=== PATIENT | female | born 1960 | race Caucasian/White ===

== ENCOUNTER 2017-03-15 09:41 | Emergency (ER) | payer OTHER ==
--- NOTE | 2017-03-15 09:58 | PDOC ---
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 The patient is a poor historian and provides no other information than missing the toilet, falling backward, and hitting his head on the toilet seat. The patient is also complaining of back pain but cannot localize the pain. Allergies: NKA Social history: Current smoker. In rehab for heroin use. No reported alcohol use. <Marisel Adams - Last Filed: 03/15/17 11:50> - General Chief Complaint: Injury Stated Complaint: INJURY TO HEAD Time Seen by Provider: 03/15/17 09:57 Past History - Past Medical History Anemia: No Asthma: Yes Cancer: No Cardiac Disorders: No CVA: Yes (last year,rt. hemiplegia spent 6 months in [place] for rehab) COPD: No Dementia: Yes (Memory loss for recent events) Diabetes: No GI Disorders: No Disorders: No HTN: Yes Kidney Stones: No Liver Disease: Yes (Cirrhosis) Seizures: Yes (2 MONTHS AGO) Thyroid Disease: No - Reproductive History PID: No - Suicide/Smoking/Psychosocial Hx Smoking History: Current every day smoker Have you smoked in the past 12 months: Yes Number of Cigarettes Smoked Daily: 3 'Breaking Loose' booklet given: 03/11/17 Hx Alcohol Use: Yes Drug/Substance Use Hx: Yes Substance Use Type: Alcohol, Heroin Hx Substance Use Treatment: Yes (Detox) <Erickson Edwards - Last Filed: 03/15/17 11:33> <Marisel Adams - Last Filed: 03/15/17 11:50> - Past Medical History Allergies/Adverse Reactions: Allergies Allergy/AdvReac Type Severity Reaction Status Date / Time No Known Allergies Allergy Verified 03/15/17 10:11 Home Medications: Ambulatory Orders Chlordiazepoxide [Librium -] 10 mg PO Q6HPO 03/15/17 Furosemide [Lasix] 20 mg PO DAILY 03/15/17 Ibuprofen [Motrin -] 400 mg PO PRN 03/15/17 Loperamide HCl [Imodium -] 4 mg PO PRN 03/15/17 Mag Hydrox/Al Hydrox/Simeth [Mylanta *Suspension*] 30 ml PO PRN 03/15/17 Magnesium Citrate [Citroma -] 300 ml PO PRN 03/15/17 Magnesium Hydrox 2400MG/30Ml [Milk of Magnesia -] 30 ml PO PRN 03/15/17 Methadone [Dolophine -] 10 mg PO DAILY 03/15/17 Nicotine Patch [Nicoderm Patch -] 1 patch TD DAILY 03/15/17 Nicotine Polacrilex [Nicorette] 2 mg BC PRN 03/15/17 P-Ephed 60Mg/Triprolidi 2.5MG [Actifed -] 1 combo PO PRN 03/15/17 Vitamins (Sjr) - 1 tab PO DAILY 03/15/17 Spironolactone [Aldactone] 25 mg PO DAILY 03/15/17 Thiamine HCl [Vitamin B1] 100 mg PO DAILY 03/15/17 Review of Systems - Review of Systems Able to Perform ROS?: Yes Comments:: 03/15/17 10:43 GENERAL/CONSTITUTIONAL: (+) Generalized pain. No fever or chills. HEAD, EYES, EARS, NOSE AND THROAT: No change in vision. No ear pain or discharge. No sore throat. CARDIOVASCULAR: No chest pain or shortness of breath. RESPIRATORY: No cough, wheezing, or hemoptysis. GASTROINTESTINAL: No nausea, vomiting, diarrhea or constipation. GENITOURINARY: No dysuria, frequency, or change in urination. MUSCULOSKELETAL: No neck pain. SKIN: No rash NEUROLOGIC: No headache, vertigo, loss of consciousness, or change in strength/ sensation. ENDOCRINE: No increased thirst. No abnormal weight change. HEMATOLOGIC/LYMPHATIC: No anemia, easy bleeding, or history of blood clots. ALLERGIC/IMMUNOLOGIC: No hives or skin allergy. <Marisel Adams - Last Filed: 03/15/17 11:50> *Physical Exam - Vital Signs Last Vital Signs Temp Pulse Resp BP Pulse Ox 98.0 F 73 18 102/47 100 03/15/17 10:01 03/15/17 10:01 03/15/17 10:01 03/15/17 10:01 03/15/17 10:01 - Physical Exam Comments: 03/15/17 10:47 GENERAL:(+) Moderate distress. Awake, alert, and fully oriented HEAD: No signs of trauma EYES: PERRLA, EOMI, sclera anicteric, conjunctiva clear ENT: Auricles normal inspection, hearing grossly normal, nares patent, oropharynx clear without exudates. Moist mucosa NECK: Normal ROM, supple, no lymphadenopathy, JVD, or masses LUNGS: Breath sounds equal, clear to auscultation bilaterally. No wheezes, and no crackles HEART: Regular rate and rhythm, normal S1 and S2, no murmurs, rubs or gallops ABDOMEN: Soft, nontender, normoactive bowel sounds. No guarding, no rebound. No masses EXTREMITIES: Normal range of motion, no edema. No clubbing or cyanosis. No cords, erythema, or tenderness NEUROLOGICAL: Cranial nerves II through XII grossly intact. Normal speech, normal gait SKIN: Warm, Dry, normal turgor, no rashes or lesions noted. <Marisel Adams - Last Filed: 03/15/17 11:50> Medical Decision Making - Medical Decision Making 03/15/17 11:50 Type: Head CT w/o contrast Reported by: Dr. Avina Reviewed by: Dr. Edwards Impression: 1. No acute intracranial hemorrhage or acute skull fracture. No mass effects, midline shift, or hydrocephalus. 2. Hypoattenuation in the periventricular white matter is nonspecific, but most likely related to mild microvascular ischemia. Relatively advanced volume loss for stated age. <Marisel Adams - Last Filed: 03/15/17 11:50> *DC/Admit/Observation/Transfer - Discharge Dispostion Admit: No - Attestations Physician Attestion: 03/15/17 09:58 I, Dr. Erickson Edwards, attest that this document has been prepared under my direction and personally reviewed by me in its entirety. I further attest, that it accurately reflects all work, treatment, procedures and medical decision -making performed by me. <Erickson Edwards - Last Filed: 03/15/17 11:33> - Attestations Scribe Attestion: 03/15/17 10:48 Documentation prepared by Marisel Adams, acting as medical secretary for Erickson Edwards MD. <Marisel Adams - Last Filed: 03/15/17 11:50> Diagnosis at time of Disposition: Heroin use disorder, mild, Status post alcohol detoxification, Alcohol dependence with uncomplicated withdrawal, Opioid dependence with withdrawal Head injury Qualifiers: Encounter type: initial encounter Qualified Code(s): S09.90XA - Unspecified injury of head, initial encounter HTN (hypertension) Qualifiers: Hypertension type: essential hypertension Qualified Code(s): I10 - Essential ( primary) hypertension - Discharge Dispostion Disposition: HOME Condition at time of disposition: Unchanged/Unknown - Patient Instructions Printed Discharge Instructions: DI for Closed Head Injury Additional Instructions: Go Back to [facility] or [facility] now
[2017-03-15 10:11] VITALS: BP 102/47; PULSE 73; TEMP 98; BMI 23.8
== END 2017-03-15 14:08 | disposition home or self-care (01) ==
LOC: JER 09:41
DX: S09.90XA Unspecified injury of head, initial encounter (principal); I10 Essential (primary) hypertension; F11.90 Opioid use, unspecified, uncomplicated; J44.9 Chronic obstructive pulmonary disease, unspecified; K74.60 Unspecified cirrhosis of liver; F17.210 Nicotine dependence, cigarettes, uncomplicated; W18.39XA Other fall on same level, initial encounter; Y93.89 Activity, other specified; Y92.238 Other place in hospital as the place of occurrence of the external cause
CPT/HCPCS: 70450-TC; 99282-25

== ENCOUNTER 2017-03-16 11:10 | Inpatient (IN) | payer OTHER ==
--- NOTE | 2017-03-16 12:23 | HP ---
[facility] Rehab Assess/Revision - Admission History Admitted to Rehab from: [facility] Date of Admission to Rehab: 03/16/17 - Vital signs Vital Signs: as per chart - Findings Detox History & Physical reviewed: Yes Concur with findings: Yes Inpatient Rehab Admission - Initial Determination Are CD services needed?: Yes Free of communicable disease: Yes Not in need of hospitalization: Yes - Rehab Admission Criteria Comorbidities: Yes Lacks judgement: Yes Patient is meeting Inpatient Rehab admission criteria:: Yes
[2017-03-16] MEDS ORDERED: hydrOXYzine PAMOATE 50 MG CAPSULE (FP) PO PRN (12:24)
[2017-03-16] MEDS ORDERED: MAGNESIUM HYDROX 2400MG/30ML ORAL SUSPENSION 30 ML CUP PO PRN (12:24)
[2017-03-16] MEDS ORDERED: LOPERAMIDE HCL 2 MG CAPSULE PO PRN (12:24)
[2017-03-16] MEDS ORDERED: NICOTINE POLACRILEX 2 MG GUM BUC PRN (12:24)
[2017-03-16] MEDS ORDERED: ACETAMINOPHEN 325 MG TABLET (FP) PO PRN (12:24)
[2017-03-16] MEDS ORDERED: MAGNESIUM CITRATE 300 ML BOTTLE PO PRN (12:24)
[2017-03-16] MEDS ORDERED: P-EPHED 60MG/TRIPROLIDI 2.5MG TABLET PO PRN (12:24)
[2017-03-16] MEDS ORDERED: MENTHOL/PHENOL 1 EACH UD MM PRN (12:24)
[2017-03-16] MEDS ORDERED: guaiFENesin/D-METHORPHAN HB 10 ML UNIT-DOSE CUPS PO PRN (12:24)
--- NOTE | 2017-03-16 13:59 | HP ---
Psychiatrist Admission - Data Date of interview: 03/16/17 Admission source: 3N Identifying data: This is the first inpatient rehabilitation admission for this 57 year old single female, mother of one, she is unemployed and homeless. Medical History: HTN, Asthma, Hep C, Seizure 2 months ago, stroke x 2 in 2016, liver cirrhosis, smokes cigarettes 2-3 a day. Psychiatric History: Patient denies history of psychiatric treatment, however reports not sleeping and feeling sad. Physical/Sexual Abuse/Trauma History: Patient denies history of abuse. Vital Signs: Vital Signs - 24 hr 03/16/17 12:23 Temperature 97.8 F Pulse Rate 70 Respiratory 16 Rate Blood Pressure 102/65 Allergies/Adverse Reactions: Allergies Allergy/AdvReac Type Severity Reaction Status Date / Time No Known Allergies Allergy Verified 03/15/17 10:11 Date of last physical exam: 03/15/17 Concur with the findings of this exam: Yes - Substance Abuse/Tx History Hx Alcohol Use: Yes (vodka 1 pint daily, started at age of 17) Hx Substance Use: Yes Substance Use Type: Heroin (1-2 bags daily, started at age of 38) Hx Substance Use Treatment: No (this is the first rehab.) Mental Status Exam - Mental Status Exam Alert and Oriented to: Place, Person Cognitive Function: Impaired Patient Appearance: Unkempt, Disheveled (with body oder) Mood: Sad, Anxious Affect: Appropriate, Mood Congruent Patient Behavior: Appropriate, Cooperative Speech Pattern: Clear, Appropriate Voice Loudness: Normal Thought Process: Goal Oriented Thought Disorder: Not Present Hallucinations: Denies Suicidal Ideation: Denies Homicidal Ideation: Denies Insight/Judgement: Fair Sleep: Poorly, Difficulty falling asleep Appetite: Poor, Weight loss Gait/Station: Other (ambulates with a walker.) Psychiatric Findings - Problem List ([place] 1, 2,3) (1) Opioid dependence Current Visit: Yes Status: Acute (2) Nicotine dependence Current Visit: Yes Status: Acute (3) Alcohol dependence Current Visit: Yes Status: Acute (4) Alcohol induced sleep disorders Current Visit: Yes Status: Acute - Initial Treatment Plan Initial Treatment Plan: will add Trazodone 25 mg po has, continue to monitor progress.
[2017-03-16] MEDS: THIAMINE HCL 100 MG TABLET (FP) PO SCH (21:54)
[2017-03-16] MEDS: traZODone HCL 50 MG TABLET (FP) PO SCH (21:54)
[2017-03-17] MEDS: PRENATAL VITAMINS W/ FOLIC ACID TABLET (FP) PO SCH (09:04)
[2017-03-17] MEDS: NICOTINE 7 MG/24 HOURS TOPICAL PATCH TD SCH ×2 (09:04→11:05)
[2017-03-17] MEDS: FUROSEMIDE 20 MG TABLET (FP) PO SCH (09:05)
[2017-03-17] MEDS: traZODone HCL 50 MG TABLET (FP) PO SCH (21:37)
[2017-03-17] MEDS: THIAMINE HCL 100 MG TABLET (FP) PO SCH (21:37)
[2017-03-18] MEDS: FUROSEMIDE 20 MG TABLET (FP) PO SCH (09:38)
[2017-03-18] MEDS: PRENATAL VITAMINS W/ FOLIC ACID TABLET (FP) PO SCH (09:38)
[2017-03-18] MEDS: NICOTINE 7 MG/24 HOURS TOPICAL PATCH TD SCH (09:39)
[2017-03-18] MEDS: IBUPROFEN 400 MG TABLET (FP) PO PRN (15:50)
[2017-03-18] MEDS: THIAMINE HCL 100 MG TABLET (FP) PO SCH (21:42)
[2017-03-18] MEDS: traZODone HCL 50 MG TABLET (FP) PO SCH (21:43)
[2017-03-19] MEDS: PRENATAL VITAMINS W/ FOLIC ACID TABLET (FP) PO SCH (09:59)
[2017-03-19] MEDS: FUROSEMIDE 20 MG TABLET (FP) PO SCH (09:59)
[2017-03-19] MEDS: NICOTINE 7 MG/24 HOURS TOPICAL PATCH TD SCH (09:59)
[2017-03-19] MEDS: THIAMINE HCL 100 MG TABLET (FP) PO SCH (21:40)
[2017-03-19] MEDS: traZODone HCL 50 MG TABLET (FP) PO SCH (21:40)
[2017-03-20] MEDS: PRENATAL VITAMINS W/ FOLIC ACID TABLET (FP) PO SCH (10:28)
[2017-03-20] MEDS: FUROSEMIDE 20 MG TABLET (FP) PO SCH (10:28)
[2017-03-20] MEDS: NICOTINE 7 MG/24 HOURS TOPICAL PATCH TD SCH (10:28)
[2017-03-20] MEDS ORDERED: ONDANSETRON *ODT* 4 MG TABLET SL PRN (11:30)
[2017-03-20] MEDS: THIAMINE HCL 100 MG TABLET (FP) PO SCH (21:40)
[2017-03-20] MEDS: traZODone HCL 50 MG TABLET (FP) PO SCH (21:40)
[2017-03-21] MEDS: PRENATAL VITAMINS W/ FOLIC ACID TABLET (FP) PO SCH (10:03)
[2017-03-21] MEDS: NICOTINE 7 MG/24 HOURS TOPICAL PATCH TD SCH (10:03)
[2017-03-21] MEDS: THIAMINE HCL 100 MG TABLET (FP) PO SCH (21:18)
[2017-03-21] MEDS: traZODone HCL 50 MG TABLET (FP) PO SCH (21:18)
[2017-03-22] MEDS: NICOTINE 7 MG/24 HOURS TOPICAL PATCH TD SCH (11:14)
[2017-03-22] MEDS: PRENATAL VITAMINS W/ FOLIC ACID TABLET (FP) PO SCH (11:14)
[2017-03-22] MEDS: THIAMINE HCL 100 MG TABLET (FP) PO SCH (21:19)
[2017-03-22] MEDS: traZODone HCL 50 MG TABLET (FP) PO SCH (21:20)
[2017-03-23] MEDS: NICOTINE 7 MG/24 HOURS TOPICAL PATCH TD SCH (10:12)
[2017-03-23] MEDS: PRENATAL VITAMINS W/ FOLIC ACID TABLET (FP) PO SCH (10:12)
[2017-03-23] MEDS: THIAMINE HCL 100 MG TABLET (FP) PO SCH (21:43)
[2017-03-23] MEDS: traZODone HCL 50 MG TABLET (FP) PO SCH (21:43)
[2017-03-24] MEDS: NICOTINE 7 MG/24 HOURS TOPICAL PATCH TD SCH (09:49)
[2017-03-24] MEDS: PRENATAL VITAMINS W/ FOLIC ACID TABLET (FP) PO SCH (09:49)
[2017-03-24] MEDS: traZODone HCL 50 MG TABLET (FP) PO SCH (21:29)
[2017-03-24] MEDS: THIAMINE HCL 100 MG TABLET (FP) PO SCH (21:29)
[2017-03-25] MEDS: IBUPROFEN 400 MG TABLET (FP) PO PRN (08:52)
[2017-03-25] MEDS: PRENATAL VITAMINS W/ FOLIC ACID TABLET (FP) PO SCH (10:07)
[2017-03-25] MEDS: NICOTINE 7 MG/24 HOURS TOPICAL PATCH TD SCH (10:08)
[2017-03-25] MEDS: traZODone HCL 50 MG TABLET (FP) PO SCH (21:39)
[2017-03-25] MEDS: THIAMINE HCL 100 MG TABLET (FP) PO SCH (21:39)
[2017-03-26] MEDS: NICOTINE 7 MG/24 HOURS TOPICAL PATCH TD SCH (09:56)
[2017-03-26] MEDS: PRENATAL VITAMINS W/ FOLIC ACID TABLET (FP) PO SCH (09:57)
[2017-03-26] MEDS: THIAMINE HCL 100 MG TABLET (FP) PO SCH (21:28)
[2017-03-26] MEDS: traZODone HCL 50 MG TABLET (FP) PO SCH (21:28)
[2017-03-27] MEDS: NICOTINE 7 MG/24 HOURS TOPICAL PATCH TD SCH (09:54)
[2017-03-27] MEDS: PRENATAL VITAMINS W/ FOLIC ACID TABLET (FP) PO SCH (09:54)
[2017-03-27] MEDS: THIAMINE HCL 100 MG TABLET (FP) PO SCH (21:42)
[2017-03-27] MEDS: traZODone HCL 50 MG TABLET (FP) PO SCH (21:42)
[2017-03-28] MEDS: PRENATAL VITAMINS W/ FOLIC ACID TABLET (FP) PO SCH (10:10)
[2017-03-28] MEDS: NICOTINE 7 MG/24 HOURS TOPICAL PATCH TD SCH (10:10)
[2017-03-28] MEDS: traZODone HCL 50 MG TABLET (FP) PO SCH (21:42)
[2017-03-28] MEDS: THIAMINE HCL 100 MG TABLET (FP) PO SCH (21:42)
[2017-03-29] MEDS ORDERED: COLLOIDAL OATMEAL 1 BAR EACH TP PRN (10:13)
[2017-03-29] MEDS: PRENATAL VITAMINS W/ FOLIC ACID TABLET (FP) PO SCH (10:36)
[2017-03-29] MEDS: NICOTINE 7 MG/24 HOURS TOPICAL PATCH TD SCH (10:36)
[2017-03-29] MEDS: traZODone HCL 50 MG TABLET (FP) PO SCH (21:44)
[2017-03-29] MEDS: THIAMINE HCL 100 MG TABLET (FP) PO SCH (21:44)
[2017-03-30] MEDS: NICOTINE 7 MG/24 HOURS TOPICAL PATCH TD SCH (10:56)
[2017-03-30] MEDS: PRENATAL VITAMINS W/ FOLIC ACID TABLET (FP) PO SCH (10:57)
[2017-03-30] MEDS: traZODone HCL 50 MG TABLET (FP) PO SCH (21:50)
[2017-03-30] MEDS: THIAMINE HCL 100 MG TABLET (FP) PO SCH (21:50)
[2017-03-30] MEDS: IBUPROFEN 400 MG TABLET (FP) PO PRN (22:15)
[2017-03-31] MEDS: NICOTINE 7 MG/24 HOURS TOPICAL PATCH TD SCH (10:17)
[2017-03-31] MEDS: PRENATAL VITAMINS W/ FOLIC ACID TABLET (FP) PO SCH (10:18)
[2017-03-31] MEDS: IBUPROFEN 400 MG TABLET (FP) PO PRN (21:33)
[2017-03-31] MEDS: traZODone HCL 50 MG TABLET (FP) PO SCH (21:33)
[2017-03-31] MEDS: THIAMINE HCL 100 MG TABLET (FP) PO SCH (21:33)
[2017-04-01] MEDS: NICOTINE 7 MG/24 HOURS TOPICAL PATCH TD SCH (10:23)
[2017-04-01] MEDS: PRENATAL VITAMINS W/ FOLIC ACID TABLET (FP) PO SCH (10:24)
[2017-04-01] MEDS: THIAMINE HCL 100 MG TABLET (FP) PO SCH (21:27)
[2017-04-01] MEDS: traZODone HCL 50 MG TABLET (FP) PO SCH (21:27)
[2017-04-01] MEDS: IBUPROFEN 400 MG TABLET (FP) PO PRN (21:28)
[2017-04-02] MEDS: PRENATAL VITAMINS W/ FOLIC ACID TABLET (FP) PO SCH (10:25)
[2017-04-02] MEDS: NICOTINE 7 MG/24 HOURS TOPICAL PATCH TD SCH (10:25)
[2017-04-02] MEDS: MAG HYDROX/AL HYDROX/SIMETH 30 ML UNIT-DOSE CUP PO PRN (15:46)
[2017-04-02] MEDS: THIAMINE HCL 100 MG TABLET (FP) PO SCH (21:38)
[2017-04-02] MEDS: traZODone HCL 50 MG TABLET (FP) PO SCH (21:39)
[2017-04-03] MEDS: MAG HYDROX/AL HYDROX/SIMETH 30 ML UNIT-DOSE CUP PO PRN (01:38)
[2017-04-03] MEDS: NICOTINE 7 MG/24 HOURS TOPICAL PATCH TD SCH (10:21)
[2017-04-03] MEDS: PRENATAL VITAMINS W/ FOLIC ACID TABLET (FP) PO SCH (10:21)
[2017-04-03] MEDS ORDERED: cloNIDine HCL 0.1 MG TABLET PO PRN (16:02)
--- NOTE | 2017-04-03 17:49 | PN ---
[facility] Progress Note (SOAP) Subjective: Patient seen for evaluation of HTN. As per patient, she has HTN and takes medication at home but she doesn't remember the names and that she does have pills at home. Patient instructed to follow up with her PCP within 1 week post discharge and to resume her home medication. Patient agreed to take clonidine prn at this time. As per patient, she is scheduled for discharge tomorrow. Objective: 04/03/17 17:46 Last Vital Signs Temp Pulse Resp BP Pulse Ox 97.4 F L 58 L 18 160/67 04/03/17 07:24 04/03/17 07:24 04/03/17 07:24 04/03/17 07:24 Assessment: 04/03/17 17:47 Patient seen for management of HTN Plan: HTN, uncontrolled: start clonidine 0.1mg PO q8hr prn if b/p > 140/90. Patient instructed to resume her home hypertensive medication and follow up with her PCP within 1 week post discharge. Patient stated that she is for discharge tomorrow.
[2017-04-03] MEDS: traZODone HCL 50 MG TABLET (FP) PO SCH (21:38)
[2017-04-03] MEDS: THIAMINE HCL 100 MG TABLET (FP) PO SCH (21:38)
[2017-04-04 07:24] VITALS: BP 135/71; PULSE 70; TEMP 97.5
[2017-04-04] MEDS: NICOTINE 7 MG/24 HOURS TOPICAL PATCH TD SCH (09:09)
[2017-04-04] MEDS: PRENATAL VITAMINS W/ FOLIC ACID TABLET (FP) PO SCH (09:09)
--- NOTE | 2017-04-04 13:19 | PN ---
Psychiatric Progress Note Vital Signs: Vital Signs Period Temp Pulse Resp BP Sys/[place] Pulse Ox Last 24 Hr 97.5 F 69-70 18-18 135-159/71-85 Date of Session: 04/04/17 Chief Complaint:: Discharge visit HPI: Patient addressed Opioid dependence comorbid with Substance induced mood disorder. ROS: Significant for Liver cirrhosis,Hep C,HTN. Current Side Effect: No Lab tests ordered: No Lab tests reviewed: Yes Provider note:: PAtient completed this program today and will continue to addres her issues on outpatient basis at [facility].patient continues to find that current medicatios:TRazodone 25 mg po hs,Vistaril 25 mg po prn help to cope with insomnia,mood instability.Scripts for 30 days provided. Supportive thrapy provided focusing on relapse prevention.Support system,coping skills utilization has been discussed with patient. Patient is stable for discharge today. Total face to face time:: 25 Mental Status Exam - Mental Status Exam Alert and Oriented to: Time, Place, Person Cognitive Function: Grossly Intact Patient Appearance: Well Groomed Mood: Hopeful, Euthymic Affect: Appropriate, Mood Congruent Patient Behavior: Cooperative Speech Pattern: Clear Voice Loudness: Normal Thought Process: Goal Oriented Thought Disorder: Not Present Hallucinations: Denies Suicidal Ideation: Denies Homicidal Ideation: Denies Insight/Judgement: Fair Sleep: Fair Appetite: Good Muscle strength/Tone: Normal Gait/Station: Normal
== END 2017-04-04 10:20 | disposition home or self-care (01) | DRG 772 ==
LOC: YASAS 11:10 → Y3E 11:11
PROVIDERS: ADMIT Psychiatry & Neurology Psychiatry; ATTEND Psychiatry & Neurology Psychiatry
PROC: HZ42ZZZ Group Counseling for Substance Abuse Treatment, Cognitive-Behavioral (ICD-10-PCS; principal; 2017-03-16)
DX: F11.20 Opioid dependence, uncomplicated (principal); F10.20 Alcohol dependence, uncomplicated; F10.282 Alcohol dependence with alcohol-induced sleep disorder; F17.210 Nicotine dependence, cigarettes, uncomplicated; I10 Essential (primary) hypertension; B18.2 Chronic viral hepatitis C; R26.2 Difficulty in walking, not elsewhere classified; J45.909 Unspecified asthma, uncomplicated; E66.9 Obesity, unspecified; Z99.89 Dependence on other enabling machines and devices; Z86.73 Personal history of transient ischemic attack (TIA), and cerebral infarction without residual deficits; Z86.69 Personal history of other diseases of the nervous system and sense organs; Z68.23 Body mass index [BMI] 23.0-23.9, adult